=== PATIENT | female | born 1990 | race Caucasian/White ===

== ENCOUNTER 2020-04-18 12:20 | Inpatient (IN) | payer OTHER ==
[2020-04-18 12:57] LABS: BASO % 0.2 % (0-2.0); EOS % 0.5 % (0-4.5); HEMATOCRIT 36.7 % (32.4-45.2); HEMOGLOBIN 12.6 GM/dL (10.7-15.3); LYMPH % 24.5 % (8-40); MCHC 34.4 g/dl (32.0-36.0); MEAN CELL VOLUME 90.1 fl (80-96); MEAN PLT VOLUME 8.3 fl (7.5-11.1); MONO % 7.9 % (3.8-10.2); NEUT % 66.9 % (42.8-82.8); PLATELET COUNT 186 K/MM3 (134-434); RBC 4.07 M/mm3 (3.60-5.2); RDW 13.6 % (11.6-15.6); WHITE BLOOD COUNT 8.1 K/mm3 (4.0-10.0)
[2020-04-18 13:04] LABS: INR 0.95 (0.83-1.09); PROTHROMBIN TIME (PATIENT) 11.2 SEC (9.7-13.0)
[2020-04-18 13:07] LABS: ACTIVATED PTT 29.9 SECONDS (25.2-36.5)
[2020-04-18 13:36] LABS: BLOOD UREA NITROGEN 12.2 mg/dL (7-18); CALCIUM 8.6 mg/dL (8.5-10.1); CREATININE 0.4 mg/dL (0.55-1.3); POTASSIUM 3.6 mmol/L (3.5-5.1)
[2020-04-18 13:47] VITALS: BMI 24.7
[2020-04-18] MEDS ORDERED: OXYTOCIN 30 UNITS in 0.9% NS 30 UNIT/500 ML INFUS.BAG IVPB ONE (14:22)
[2020-04-18] MEDS ORDERED: ELECTROLYTE-148 SOLN 1,000 ML IV SCH ×2 (15:30→16:30)
[2020-04-18] MEDS ORDERED: BUTORPHANOL TARTRATE 1 MG/ML VIAL IVPB ONE (16:17)
[2020-04-18] MEDS ORDERED: PROMETHAZINE HCL 25 MG/1 ML VIAL IVPUSH ONE (16:17)
--- NOTE | 2020-04-18 16:34 | HP ---
Past Medical History - Primary Care Physician PCP:: Monica Hernandez - Admission Chief Complaint: 29 yrs 40 weeks requests for induction of labor History of Present Illness: pnc at [address] [place] [address] wt gain 10/19/19 panel : O pos , gc/ct neg , hbsag neg , hep c nr, trep,neg, hiv neg rubella immune , varicella immune urine c/s neg 03/10/20 Quantiferon neg, 1 hr gtt wnl 03/22/20 GBS neg, gc/ct neg , h/h 11.4/34.6 , plt 193 MFM serial us done for growth. . 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 Weeks Gestation by Dates: 40 ...EDC by Dates: 04/18/20 (40) ...EDC by Sono: 04/18/20 Heme/Onc: No: Anemia, Sickle Cell Trait Infectious Disease: No: AIDS, HIV, STD's, Tuberculosis Psych: No: Addictions, Anxiety, Bipolar, Depression, Panic, Psychosis, Schizophrenia, Other Endocrine: No: Diabetes Mellitus, Hyperthyroidism, Hypothyroidism - Past Surgical History Past Surgical History: Yes: None Hx Myomectomy: No Hx Transabdominal Cerclage: No - Smoking History Smoking history: Never smoked Have you smoked in the past 12 months: No - Alcohol/Substance Use Hx Alcohol Use: No History of Substance Use: reports: None - Social History ADL: Independent History of Recent Travel: No Home Medications - Allergies Allergies/Adverse Reactions: Allergies Allergy/AdvReac Type Severity Reaction Status Date / Time No Known Allergies Allergy Verified 05/13/18 23:35 - Home Medications Home Medications: Ambulatory Orders Iron 1 tab PO DAILY 04/18/20 Vitamins (Sjr) - 1 tab PO DAILY 04/18/20 Review of Systems - Review of Systems Constitutional: reports: No Symptoms Eyes: reports: No Symptoms HENT: reports: No Symptoms Neck: reports: No Symptoms Cardiovascular: reports: No Symptoms Respiratory: reports: No Symptoms Gastrointestinal: reports: No Symptoms Genitourinary: reports: No Symptoms Breasts: reports: No Symptoms Reported Musculoskeletal: reports: No Symptoms Integumentary: reports: No Symptoms Neurological: reports: No Symptoms Endocrine: reports: No Symptoms Hematology/Lymphatic: reports: No Symptoms Psychiatric: reports: No Symptoms Physical Exam - Maternity Vital Signs: Vital Signs Temperature 98.4 F 04/18/20 14:38 Pulse Rate 60 04/18/20 15:28 Respiratory Rate 18 04/18/20 15:28 Blood Pressure 98/69 04/18/20 15:28 O2 Sat by Pulse Oximetry (%) Selected Entries 04/18/20 13:14 Weight 140 lb Constitutional: Yes: Well Nourished Eyes: Yes: WNL HENT: Yes: WNL Neck: Yes: WNL Cardiovascular: Yes: WNL Lungs: Clear to auscultation Breast(s): Yes: WNL - Abdominal Exam/OB Fundal Height: 38 Number of Fetuses: Single Presentation: Vertex Contractions: Yes Regularity: Irregular (10-12 min) Intensity: Mild Monitor Mode: External Heart Rate (range): 140 Heart Rate Location: [facility] Category: I Accelerations: Uniform Decelerations: None - Vaginal Exam/OB Vaginal Bleeding: No Speculum Exam: No Dilatation (cm): 1-2 Effacement (%): 50 Amniotic Membrane Status: Intact Presentation: Vertex/Position Station: -3 - Physical Exam Musculoskeletal: Yes: WNL Extremities: Yes: WNL Edema: Yes Edema: LLE: 1+, RLE: 1+ Integumentary: Yes: WNL Deep Tendon Reflex Grade: Normal +2 ...Motor Strength: WNL Psychiatric: Yes: WNL - Labs Lab Results: CBC, BMP 04/18/20 12:47 08/04/20 12:47 Laboratory Tests 04/18/20 04/18/20 04/18/20 12:47 12:47 12:47 PT with INR 11.20 INR 0.95 PTT (Actin FS) 29.9 Syphilis Serology Non-reactive Blood Type O POSITIVE Antibody Screen Negative Hemorrhage Risk Assessment - Risk Factors High Risk Factors: Yes: None Risk Score: 0 Risk Level: Low Risk Problem List - Problems (1) 40 weeks gestation of Code(s): Z3A.40 - 40 WEEKS GESTATION OF (2) Elective induction of labor planned Code(s): GGP9576 - Assessment/Plan 29 yrs , 40 wks admitted due to pt requesting for induction of blank plan cervidil insertion for induction of labor ( inserted at 5.00 PM ) anticipate vag delivary . stadol + phenrgan & or epidural for labor analgesia
[2020-04-18] MEDS ORDERED: SODIUM PHOSPHATE/NA BIPHOS 133 ML ENEMA PR ONE (17:00)
[2020-04-18] MEDS ORDERED: DINOPROSTONE 10 MG VAGINAL SUPPOSITORY VG ONE (17:01)
--- NOTE | 2020-04-18 22:58 | PN ---
Progress Note (short form) - Note Progress Note: c/o pain UC q 2-3-4 min , mild -mod . FHR 150 cat-1 Cx 3/70/-3/-2 pelvis adequate . cervidil in situ Selected Entries 04/18/20 22:00 Temperature 98.0 F Temperature Oral Source Pulse Rate 55 L Blood Pressure 121/69 plan : fleet enema, shower . epidural Problem List - Problems (1) 40 weeks gestation of Code(s): Z3A.40 - 40 WEEKS GESTATION OF (2) Elective induction of labor planned Code(s): NWT1442 -
[2020-04-19] MEDS ORDERED: FENTANYL/BUPIVACAINE/NS/PF - PCEA - 50 ML DISP.SYRIN EP ONE (00:08)
[2020-04-19] MEDS ORDERED: NALOXONE HCL 0.4 MG/ML VIAL IVPUSH PRN (00:13)
[2020-04-19] MEDS ORDERED: FENTANYL/BUPIVACAINE/NS/PF - PCEA - 50 ML DISP.SYRIN EP SCH (00:15)
[2020-04-19] MEDS ORDERED: BUPIVACAINE HCL/PF 0.25% (2.5MG/ML) 10 ML VIAL ONE (00:16)
[2020-04-19] MEDS ORDERED: LIDOCAINE HCL 1% PRESERVATIVE FREE - 30ML VIAL ONE (04:43)
[2020-04-19] MEDS ORDERED: OXYTOCIN 20 UNITS in 0.9% NS 20 UNIT/1,000 ML INFUS.BAG IV ONE ×2 (04:43→23:16)
[2020-04-19] MEDS ORDERED: BISACODYL 10 MG SUPP.RECT RC PRN (05:51)
[2020-04-19] MEDS ORDERED: WITCH HAZEL 50% (TUCKS) 40 PAD/JAR PAD TP PRN (05:51)
[2020-04-19] MEDS ORDERED: METHYLERGONOVINE MALEATE 0.2 MG/1 ML AMP IM PRN (05:51)
[2020-04-19] MEDS ORDERED: BENZOCAINE 20% 57 GM BOTTLE TP PRN (05:51)
[2020-04-19] MEDS ORDERED: BENZOCAINE 28 GM HEMORRHOIDAL OINTMENT TP PRN (05:51)
[2020-04-19 05:55] LABS: CORD HCO3 21.1 mmHg (20-29); CORD PCO2 38.6 mmHg (30-78); CORD pH 7.355 (7.14-7.44)
[2020-04-19] MEDS ORDERED: OXYTOCIN 20 UNITS in 0.9% NS 20 UNIT/1,000 ML INFUS.BAG IV SCH (06:00)
--- NOTE | 2020-04-19 06:06 | PN ---
Progress Note (short form) - Note Progress Note: 4.00AM srom clear . FHR 140-cat-1 , UC q2-4 min 4.30AM 9/100/ +2 , Cervidil removed fhr 140-120 , cat-1 early decel ,pushing 4.45AM 10/100/+3 pushing , warren taken out 800ml urine Selected Entries 04/19/20 04/19/20 04:30 05:00 Temperature 98.5 F Pulse Rate 60 Blood Pressure 118/66 Problem List - Problems (1) 40 weeks gestation of Code(s): Z3A.40 - 40 WEEKS GESTATION OF (2) Elective induction of labor planned Code(s): [id number] -
--- NOTE | 2020-04-19 06:13 | PN ---
Delivery - Delivery Vaginal Delivery: No Problems, Spontaneous (baby delievered vx, merle position ,shoulders delievered without difficulty .oral & nasal suction done. trivascular cord, cord segment for cord gas & cord blood collected. Placenta delievered completely with membranes followed by MEU. 1st degree vaginal laceration sutured with chr catgut #2/0 under local anesthesia . 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 GBS neg Pnc at [address] [place] [address] cervidil insertion on 04/18/20 intrapartum course uneventful . v/s stable
[2020-04-19] MEDS: ACETAMINOPHEN 325 MG TABLET (FP) PO PRN ×3 (06:45→23:06)
[2020-04-19] MEDS: IBUPROFEN 600 MG TABLET (FP) PO PRN ×3 (06:45→23:06)
[2020-04-19] MEDS ORDERED: IBUPROFEN 600 MG TABLET (FP) PO ONE (06:53)
[2020-04-19] MEDS ORDERED: ACETAMINOPHEN 325 MG TABLET (FP) ONE (06:54)
[2020-04-19] MEDS ORDERED: OXYTOCIN 20 UNITS in 0.9% NS 0 UNIT/0 ML INFUS.BAG IV ONE (07:15)
[2020-04-19] MEDS: FERROUS SO4 325 MG TABLET (FP) PO SCH ×2 (08:55→17:51)
[2020-04-19] MEDS ORDERED: PCA PUMP NR ONE (09:48)
[2020-04-19] MEDS: PRENATAL VITAMINS W/ FOLIC ACID TABLET (FP) PO SCH (09:55)
[2020-04-20 07:58] LABS: BASO % 0.1 % (0-2.0); EOS % 0.8 % (0-4.5); HEMATOCRIT 32.3 % (32.4-45.2); HEMOGLOBIN 10.9 GM/dL (10.7-15.3); LYMPH % 25.1 % (8-40); MCH 30.8 pg (25.7-33.7); MCHC 33.7 g/dl (32.0-36.0); MEAN CELL VOLUME 91.4 fl (80-96); MEAN PLT VOLUME 8.6 fl (7.5-11.1); MONO % 9.1 % (3.8-10.2); NEUT % 64.9 % (42.8-82.8); PLATELET COUNT 151 K/MM3 (134-434); RBC 3.53 M/mm3 (3.60-5.2); RDW 14.1 % (11.6-15.6); WHITE BLOOD COUNT 9.4 K/mm3 (4.0-10.0)
--- NOTE | 2020-04-20 08:02 | PN ---
Post Progress Note Type of Delivery: Vital Signs: Vital Signs Temperature 97.2 F L 04/20/20 04:23 Pulse Rate 78 04/20/20 04:23 Respiratory Rate 18 04/20/20 04:23 Blood Pressure 118/64 04/20/20 04:23 O2 Sat by Pulse Oximetry (%) 99 04/19/20 14:00 Uterus: Yes: Fundus below umbilicus Incision: Yes: Dressing dry and intact Abdomen/GI: Yes: Abdomen soft, Tolerating PO Lochia: Yes: Rubra Lochia, amount: Small Extremities: Yes: Calves non-tender Perineum: Yes: Intact Activity: Ambulating - Labs Labs: CBC WBC 8.1 K/mm3 (4.0-10.0) 04/18/20 12:47 RBC 4.07 M/mm3 (3.60-5.2) 04/18/20 12:47 Hgb 12.6 GM/dL (10.7-15.3) 04/18/20 12:47 Hct 36.7 % (32.4-45.2) 04/18/20 12:47 MCV 90.1 fl (80-96) 04/18/20 12:47 MCH 31.0 pg (25.7-33.7) 04/18/20 12:47 MCHC 34.4 g/dl (32.0-36.0) 04/18/20 12:47 RDW 13.6 % (11.6-15.6) 04/18/20 12:47 Plt Count 186 K/MM3 (134-434) 04/18/20 12:47 MPV 8.3 fl (7.5-11.1) 04/18/20 12:47 Absolute Neuts (auto) 5.4 K/mm3 (1.5-8.0) 04/18/20 12:47 Neutrophils % 66.9 % (42.8-82.8) D 04/18/20 12:47 Lymphocytes % 24.5 % (8-40) D 04/18/20 12:47 Monocytes % 7.9 % (3.8-10.2) 04/18/20 12:47 Eosinophils % 0.5 % (0-4.5) 04/18/20 12:47 Basophils % 0.2 % (0-2.0) 04/18/20 12:47 Nucleated RBC % 0 % (0-0) 04/18/20 12:47 Assessment/Plan 29yo multip s/p , PPD#1 Routine PP care PO pain control F/U AM labs D/C to home by PPD#2 Aden Wood MD
[2020-04-20] MEDS: FERROUS SO4 325 MG TABLET (FP) PO SCH (08:42)
[2020-04-20 09:49] VITALS: BP 108/74; PULSE 69; TEMP 98.2
[2020-04-20] MEDS: IBUPROFEN 600 MG TABLET (FP) PO PRN (09:59)
[2020-04-20] MEDS: PRENATAL VITAMINS W/ FOLIC ACID TABLET (FP) PO SCH (09:59)
[2020-04-20] MEDS: ACETAMINOPHEN 325 MG TABLET (FP) PO PRN (10:00)
[2020-04-20] MEDS ORDERED: SENNOSIDES/DOCUSATE COMBO (SENNA PLUS) TABLET (UD) PO PRN (22:00)
== END 2020-04-20 13:14 | disposition home or self-care (01) | DRG 560 ==
LOC: JLDR 12:20 → J3W 04-19 08:00
PROVIDERS: ADMIT Obstetrics & Gynecology; ATTEND Obstetrics & Gynecology
PROC: 3E0P7VZ Introduction of Hormone into Female Reproductive, Via Natural or Artificial Opening (ICD-10-PCS; 2020-04-18)
PROC: 10E0XZZ Delivery of Products of Conception, External Approach (ICD-10-PCS; principal; 2020-04-19)
PROC: 0W8NXZZ Division of Female Perineum, External Approach (ICD-10-PCS; 2020-04-19)
PROC: 0HQ9XZZ Repair Perineum Skin, External Approach (ICD-10-PCS; 2020-04-19)
DX: O70.0 First degree perineal laceration during delivery (principal); Z3A.40 40 weeks gestation of pregnancy; Z37.0 Single live birth
CPT/HCPCS: 36415; 36600; 59409; 80048; 82803; 85025; 85610; 85730; 86780; 86850; 86900; 86901; U0003

== ENCOUNTER 2021-08-16 11:31 | Emergency (ER) | payer OTHER ==
[2021-08-16 12:49] VITALS: BP 124/75; PULSE 67; TEMP 98.5; BMI 25.8
[2021-08-16] MEDS ORDERED: FLUORESCEIN NA 1 EA STRIP OU ONE (13:33)
[2021-08-16] MEDS ORDERED: TETRACAINE 0.5% HCL 0.6ML DROPPER.BOTTLE OU ONE (13:33)
[2021-08-16] MEDS ORDERED: FLUORESCEIN NA 1 EA STRIP ONE (13:40)
[2021-08-16] MEDS ORDERED: TETRACAINE 0.5% OPHTH SOLN 2 ML BOTTLE ONE (13:40)
[2021-08-16] MEDS ORDERED: ERYTHROMYCIN 0.5% OPHTHALMIC OINTMENT 3.5 GM TUBE OU ONE (13:50)
[2021-08-16] MEDS ORDERED: ERYTHROMYCIN 0.5% OPHTHALMIC OINTMENT 3.5 GM TUBE ONE (13:51)
== END 2021-08-16 14:05 | disposition home or self-care (01) ==
LOC: JERFT 11:31
PROC: 3E023NZ Introduction of Analgesics, Hypnotics, Sedatives into Muscle, Percutaneous Approach (ICD-10-PCS; principal; 2021-08-16)
DX: H10.33 Unspecified acute conjunctivitis, bilateral (principal)
CPT/HCPCS: 99284-25

== ENCOUNTER 2023-06-16 08:15 | Inpatient (IN) | payer OTHER ==
[2023-06-16] MEDS ORDERED: OXYTOCIN 30 UNITS in 0.9% NS 30 UNIT/500 ML INFUS.BAG IVPB SCH (09:45)
[2023-06-16 09:47] VITALS: BMI 27.6
[2023-06-16 10:11] LABS: INR 1.02 (0.83-1.09); PROTHROMBIN TIME (PATIENT) 11.8 SEC (9.7-13.0)
[2023-06-16 10:13] LABS: BASO % 0.2 % (0-2.0); EOS % 0.4 % (0-4.5); HEMATOCRIT 36.1 % (32.4-45.2); LYMPH % 23.1 % (8-40); MCH 31.2 pg (25.7-33.7); MCHC 35.9 g/dl (32.0-36.0); MEAN CELL VOLUME 86.9 fl (80-96); MEAN PLT VOLUME 8.7 fl (7.5-11.1); MONO % 8.5 % (3.8-10.2); NEUT % 67.8 % (42.8-82.8); PLATELET COUNT 202 10^3/uL (134-434); RBC 4.15 M/mm3 (3.60-5.2); RDW 13.8 % (11.6-15.6); WHITE BLOOD COUNT 8.2 K/mm3 (4.0-10.0)
[2023-06-16 10:14] LABS: ACTIVATED PTT 28.1 SECONDS (25.2-36.5)
[2023-06-16] MEDS: ELECTROLYTE-148 SOLN 1,000 ML IV SCH ×2 (10:30→14:01)
[2023-06-16 10:43] LABS: POTASSIUM 3.8 mmol/L (3.5-5.1)
[2023-06-16 10:44] LABS: CALCIUM 8.6 mg/dL (8.5-10.1)
[2023-06-16 10:48] LABS: CREATININE 0.3 mg/dL (0.55-1.3)
[2023-06-16] MEDS ORDERED: OXYTOCIN 30 UNITS in 0.9% NS 30 UNIT/500 ML INFUS.BAG IVPB ONE (11:06)
[2023-06-16] MEDS ORDERED: FENTANYL/BUPIVACAINE/NS/PF - PCEA - 50 ML DISP.SYRIN EP ONE (13:27)
[2023-06-16] MEDS ORDERED: FENTANYL CITRATE/PF 50 MCG/ML VIAL ONE (13:28)
[2023-06-16] MEDS ORDERED: LIDO 2%/EPI 1:200000 PRESRVFRE (20 ML SDVIAL) ONE (13:28)
[2023-06-16] MEDS ORDERED: BUPIVACAINE HCL/PF 0.25% (2.5MG/ML) 10 ML VIAL ONE (13:28)
[2023-06-16] MEDS ORDERED: NALOXONE HCL 0.4 MG/ML VIAL IVPUSH PRN (13:47)
[2023-06-16] MEDS ORDERED: FENTANYL/BUPIVACAINE/NS/PF - PCEA - 50 ML DISP.SYRIN EP SCH (14:00)
[2023-06-16] MEDS ORDERED: OXYTOCIN 20 UNITS in 0.9% NS 20 UNIT/1,000 ML INFUS.BAG IV ONE (16:02)
[2023-06-16] MEDS ORDERED: METHYLERGONOVINE MALEATE 0.2 MG/1 ML AMP IM PRN (16:39)
[2023-06-16] MEDS ORDERED: BENZOCAINE 28 GM HEMORRHOIDAL OINTMENT TP PRN (16:39)
[2023-06-16] MEDS ORDERED: ACETAMINOPHEN 325 MG TABLET (FP) PO PRN (16:39)
[2023-06-16] MEDS ORDERED: BENZOCAINE 20% 57 GM BOTTLE TP PRN (16:39)
[2023-06-16] MEDS ORDERED: WITCH HAZEL 50% (TUCKS) 40 PAD/JAR PAD TP PRN (16:39)
[2023-06-16] MEDS ORDERED: BISACODYL 10 MG SUPP.RECT RC PRN (16:39)
[2023-06-16] MEDS ORDERED: OXYTOCIN 20 UNITS in 0.9% NS 20 UNIT/1,000 ML INFUS.BAG IV SCH (16:45)
[2023-06-16] MEDS ORDERED: FERROUS SO4 325 MG TABLET (FP) ONE (17:16)
[2023-06-16] MEDS: FERROUS SO4 325 MG TABLET (FP) PO SCH (17:18)
[2023-06-16 18:34] VITALS: RESP 18
[2023-06-16] MEDS: IBUPROFEN 600 MG TABLET (FP) PO PRN (23:21)
[2023-06-17 07:22] LABS: BASO % 0.2 % (0-2.0); EOS % 0.7 % (0-4.5); HEMATOCRIT 35.5 % (32.4-45.2); HEMOGLOBIN 12.2 GM/dL (10.7-15.3); LYMPH % 24.6 % (8-40); MCHC 34.5 g/dl (32.0-36.0); MEAN CELL VOLUME 89.8 fl (80-96); MEAN PLT VOLUME 8.7 fl (7.5-11.1); MONO % 9.4 % (3.8-10.2); NEUT % 65.1 % (42.8-82.8); PLATELET COUNT 187 10^3/uL (134-434); RBC 3.95 M/mm3 (3.60-5.2)
[2023-06-17] MEDS: PRENATAL VITAMINS W/ FOLIC ACID TABLET (FP) PO SCH (10:07)
[2023-06-17] MEDS: FERROUS SO4 325 MG TABLET (FP) PO SCH (10:07)
[2023-06-17] MEDS: IBUPROFEN 600 MG TABLET (FP) PO PRN (17:23)
[2023-06-17] MEDS ORDERED: SENNOSIDES/DOCUSATE COMBO (SENNA PLUS) TABLET (UD) PO PRN (22:00)
[2023-06-18] MEDS: PRENATAL VITAMINS W/ FOLIC ACID TABLET (FP) PO SCH (09:23)
[2023-06-18] MEDS: FERROUS SO4 325 MG TABLET (FP) PO SCH (09:23)
[2023-06-18 12:47] VITALS: BP 118/78; PULSE 65; TEMP 98.1
== END 2023-06-18 12:00 | disposition home or self-care (01) | DRG 560 ==
LOC: JLDR 08:15 → J3W 18:03
PROVIDERS: ADMIT Obstetrics & Gynecology; ATTEND Obstetrics & Gynecology
PROC: 10E0XZZ Delivery of Products of Conception, External Approach (ICD-10-PCS; principal; 2023-06-16)
PROC: 0HQ9XZZ Repair Perineum Skin, External Approach (ICD-10-PCS; 2023-06-16)
DX: O48.0 Post-term pregnancy (principal); Z3A.41 41 weeks gestation of pregnancy; O70.0 First degree perineal laceration during delivery; Z37.0 Single live birth
CPT/HCPCS: 36415; 80048; 85025; 85610; 85730; 86780; 86850; 86900; 86901